=== PATIENT | male | born 1985 ===

== ENCOUNTER 2025-02-25 15:20 | Emergency (ER) | payer OTHER, SELFPAY ==
--- OUTSIDE RECORDS SUMMARY | 2025-02-25 15:23 | XMS_ITS | Patient Health Record ---
Author Organization [facility] Address [address], [place] [id number] Care Team Providers Care Licensed Pesticide Applicator Name Role Phone Gurmeet Mercado Primary Care Provider [phone] Sukhjinder De Luna Unavailable [phone] Allergies No Known Allergies Reason For Referral No Information Medications Medication SIG (Take, Route, Frequency, Duration) Notes Start Date End Date Status Fiber Active Lisinopril 20 MG 1 tablet Orally Once a day for 90 days Active Cyclobenzaprine HCl 10 MG 1 tablet Orall y three times a day as needed (prn) Active Melatonin Active Protonix 20 MG 1 tablet Orally Once a day Active amLODIPine Besylate 5 MG 1 tablet Orally Once a day Active Social History Tobacco Use: Social History Observation Description Date Details (start date - stop date) Never Smoker NA - NA Smoking Question Answer Notes Status: Non-Smoker Problems Problem Type SNOMED Code ICD Code Onset Dates Problem Status W/U Status Risk Notes Problem [id number] Hypertension, unspecified type (I10) Active confirmed Vital Signs Heart Rate 90 /min 07/18/2024 Temperature 97.2 degrees Fahrenheit 07/18/2024 Respiratory Rate 18 /min 07/18/2024 Blood pressure diastolic 88 mm Hg 07/18/2024 Height 68 in 07/18/2024 Blood pressure systolic 130 mm Hg 07/18/2024 Weight 207.8 lbs 07/18/2024 BMI 31.59 kg/m2 07/18/2024 Encounters Encounter Location Date Provider Diagnosis [facility] [address], [place] [id number] 05/09/2024 Gurmeet Mercado Hypertension, unspecified type I10 [facility] [address], [place] [id number] 07/18/2024 Sukhjinder De Luna Hypertension, unspecified type I10 [facility] [address], [place] [phone] 09/11/2024 Sukhjinder De Luna Assessments Encounter Date Diagnosis (ICD Code) Assessment Notes Treatment Notes Treatment Clinical Notes Section Notes 05/09/2024 Hypertension, unspecified type (ICD-10 - I10) 1. Recommend to get an upper arm blood pressure monitor. 2. Monitor BP at least once daily and keep the BP readings in a BP log. 3. Avoid checking BP right after eating or activities. 4. Consume a diet rich in fruits, vegetables, whole grains, and low-fat dairy products, with reduced content of saturated and total fat. 5. Regular physical activity: 30 min-walk 5 times weekly. 6. Limit alcohol intake. 7. Please activate EMS (emergency medical services) if you develop symptoms such as chest pain, shortness of breath, dizziness, headache, vomiting, sudden vision changes, change of consciousness, and/or any new symptoms. 8. Seek care in urgent care or ER if your systolic blood pressure remains high >180mmHg or diastolic blood pressure >120mmHg, and/or has symptoms after taking your prescribed medications. 9. Seek care in urgent care or ER immediately if develops low blood pressure symptoms such as dizziness, fainting, weakness, blurry vision (differ from baseline), and/or confusion. 10. Consider schedule an appointment with VANNESA De Luna to discuss alterntaive treatment for high blood pressure. 11. Patient agreed with plans of care. 07/18/2024 Hypertension, unspecified type (ICD-10 - I10) 07/18/2024 Other 1. Hypertension - Trial off amlodipine: Hold amlodipine for 1-2 days while monitoring blood pressure daily. If blood pressure increases significantly, resume amlodipine. If blood pressure remains stable, consider increasing lisinopril to 20 mg daily. - Lifestyle modifications: Continue healthy diet and resume regular exercise with a focus on short, high-intensity intervals (target heart rate 150-160 bpm) rather than prolonged elevated heart rate. - Supplements: Increase beet supplement as tolerated. Start magnesium 300 mg daily to offset lisinopril-induced magnesium loss and aid with constipation. Continue probiotic. - Monitoring: Obtain home blood pressure cuff and monitor blood pressure daily at varying times. Report any significant changes or concerns. 2. Fatigue and difficulty losing weight - Differential diagnosis: Fluid retention secondary to hypertension and medications, hypogonadism, heavy metal toxicity (cadmium, lead) - Investigations: Check testosterone levels (morning draw), consider screening for cadmium and lead exposure given occupational history - Treatment: Adjust hypertension management as above. If heavy metal toxicity identified, consider high-dose zinc supplementation with close monitoring of bowel habits. 3. Health maintenance - Screening: Consider coronary artery calcium score and peripheral artery disease screening (e.g., [facility] Screening) given age and risk factors - Follow-up: Close follow-up via portal messaging and office visits as needed. Goal to optimize blood pressure management and address any adverse effects over the next 6 months. Plan Of Treatment No Information Insurance Providers Payer Name Payer Address Payer Phone Subscriber Number Group Number Insured Name Patient Relationship to Insured Coverage Start Date Coverage End Date [facility] ([facility]) [address] [place] [address] [id number] Richy Verdugo Self - patient is the insured Medical (General) History Medical History History ICD Code High BP
--- OUTSIDE RECORDS SUMMARY | 2025-02-25 15:23 | XMS_ITS | Clinical Summary ---
Author Organization [facility] Address [address] [place] [address] Care Team Providers Care Information Clerk [employer]obile [employer] Name Role Phone Doctor, No Primary Care Provider Unavailabl e Clinic, No Primary Unavailable Unavailable Allergies No known active allergies Medications amLODIPine-ambrosio zepril (LOTREL) 10-20 mg oral capsule Take 1 capsule by mouth once daily. Active LISINOPRIL ORAL Take by mouth. Active omeprazole (PRILOSEC) 10 mg oral delayed release capsule Take 1 capsule (10 mg) by mouth once daily. Active Magic Mouthwash suspension 5 mL by Swish & Swallow route every 2 (two) hours as needed for mouth pain. Contains: Equal Amounts of: MAALOX/BENAD RYL/LIDOCAIN E VISCOUS 2%. 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 Gender Identity Not on file Sexual Orientation Not on file Last Filed Vital Signs Vital Sign Reading Time Taken Comments Blood Pressure 133/91 08/07/2022 10:31 AM RECYCLING DIRECTOR Pulse 93 08/07/2022 10:31 AM RECYCLING DIRECTOR Temperature 36.9 C (98.5 F) 08/07/2022 10:31 AM RECYCLING DIRECTOR Respiratory Rate 18 08/07/2022 10:31 AM RECYCLING DIRECTOR Oxygen Saturation 98% 08/07/2022 10:31 AM RECYCLING DIRECTOR Inhaled Oxygen Concentration - - Weight - - Height - - Body Mass Index - - Plan of Treatment Health Maintenance Due Date Last Done Comments Hepatitis C Screening 1985 Lipid Screening 1985 Anxiety Screening (ARCELIA-2) 1986 Depression Assessment (PHQ-2) 1986 Adult Tetanus Booster 2004 COVID-19 Vaccine (1 - 2024-2 5 season) 2024 Influenza Vaccine (Season Ended) 2025 RSV Vaccines (1 - 1-dose 75+ series) 2060 Meningococcal B Vaccine Aged Out No l onger eligible based on patient's age to complete this topic Pneumococcal Vaccine Aged Out No long er eligible based on patient's age to complete this topic Insurance [facility] Address: [facility] [address] [place] [address] Care Teams Information Clerk Automobile Club Relationship Specialty Start Date End Date Doctor, No No ad PCP - General Radiology 08/07/22 Clinic, No Primary PCP - Primary Care Clinic 08/07/22
--- OUTSIDE RECORDS SUMMARY | 2025-02-25 15:23 | XMS_ITS | Referral Summary ---
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 Gender Identity Not on file Sexual Orientation Not on file Last Filed Vital Signs Vital Sign Reading Time Taken Comments Blood Pressure 133/91 08/07/2022 10:31 AM ENGINEERING CLERK Pulse 93 08/07/2022 10:31 AM ENGINEERING CLERK Temperature 36.9 C (98.5 F) 08/07/2022 10:31 AM ENGINEERING CLERK Respiratory Rate 18 08/07/2022 10:31 AM ENGINEERING CLERK Oxygen Saturation 98% 08/07/2022 10:31 AM ENGINEERING CLERK Inhaled Oxygen Concentration - - Weight - - Height - - Body Mass Index - - Plan of Treatment Not on file Insurance [facility] Care Teams Pest Control Applicator Relationship Specialty Start Date End Date Doctor, No No ad PCP - General Radiology 08/07/22 Clinic, No Primary PCP - Primary Care Clinic 08/07/22
[2025-02-25 15:28] VITALS: BP 152/100; PULSE 97; RESP 16; O2SAT 98; BMI 31.3
[2025-02-25 15:36] VITALS: TEMP 36.6
--- NOTE | 2025-02-25 16:15 | ED.GENADULT ---
HPI - General Adult General Date Seen: 02/25/25 Chief complaint: Chest Pain Stated complaint: Left painful, Tightness in chest, feeling ill Time Seen by Provider: 02/25/25 16:12 History of Present Illness HPI narrative: 39-year-old male with history of GERD, hypertension, insomnia, family history of coronary artery disease and diabetes. He does not have any known history of coronary disease. He presents to the ER today for evaluation of chest pain and left arm pain and chest tightness. Symptoms began 4 days ago on Sunday have been present since then. He presents to the ER this afternoon with his fiancee who help supplement his history and his supportively as side. He notes that since either Sunday or Sunday he started having some symptoms of an achy numbness in his left elbow and sometimes in his left upper arm and sometimes in his left arm. This is reminiscent to him of in the past when he was diagnosed with tennis elbow. Also since Sunday or Sunday he has been having episodes of discomfort in his chest. This using the central chest but sometimes on the right and sometimes on the left. It feels kind of like a tight feeling. It is not really a pressure or sharp pain. It is not pleuritic it does not hurt to breathe. The pain does not radiate through to his back or up to his jaw. Although he is having left arm pain it does not really correlate with the episodes of chest discomfort. No nausea. No palpitations. No abdominal pain. No swelling in his legs. Nose recent travel or immobilization. He does have hypertension is on lisinopril. He notes that he almost always has elevated blood pressure readings at a doctor's office but blood pressure tends to run much lower when he is at home. He has been having chest discomfort since Sunday or Sunday. He was fairly bed yesterday at his child's little league game but then got a bit better. It has been present throughout the day today. He was worried that he might be having coronary artery disease or heart attack so wanted to come get checked out. He also endorses a lot of stressors in his life that any specific stressor they heal confided in me. He also has history of GERD. He never takes ibuprofen or NSAIDs. He is on omeprazole. He has a primary care provider who is a holistic doctor in [place]. Related Data Previous Rx's ?Medication ?Instructions ?Recorded cyclobenzaprine 10 mg tablet 10 mg PO TID #90 tabs 10/12/23 lisinopril 10 mg tablet 10 mg PO QDAY #90 tabs 10/12/23 pantoprazole 20 mg tablet,delayed 20 mg PO QDAY #90 tabs 12/08/24 release Allergies Allergy/AdvReac Type Severity Reaction Status Date / Time No Known Drug Allergies Allergy Verified 02/25/25 15:33 PFSH PFS Surgical History Status post vasectomy ?Z98.52 - Vasectomy status (ICD-10) Status post tonsillectomy and adenoidectomy ?Z90.89 - Acquired absence of other organs (ICD-10) Social History Smoking Status: Current some day smoker What tobacco products do you use: cigarettes Do you use any of these nicotine containing products: None Second hand tobacco smoke exposure: No How often do you have a drink containing alcohol: monthly or less How often do you have six or more drinks on one occasion: Never AUDIT-C Alcohol total score: 1 Non-prescribed substance use: denies use Exam Narrative: Exam Narrative: Constitutional: Appears well-developed and well-nourished. Alert. Conversant. Non toxic. HENT: Head: Atraumatic. Nose: Nose normal. Mouth/Throat: Oral mucosa is clear and moist. no trismus. Pharynx normal. Tonsils symmetric. No tonsillar enlargement, erythema, or exudate. Eyes: Conjunctivae normal. EOM normal. Pupils equal, round, and reactive to light. No scleral icterus. Neck: Normal range of motion. Neck supple. No tracheal deviation present. No JVD Cardiovascular: Normal rate, regular rhythm. No gallop. No friction rub. No murmur heard. Symmetric radial and PT artery pulses Pulmonary/Chest: Effort normal. No stridor. No respiratory distress. No wheezes. No rales. No rhonchi . No tenderness. Abdominal: Soft. Bowel sounds normal. No distension. No mass. No tenderness. No rebound. No guarding. Musculoskeletal: RUE: Normal range of motion. No tenderness. No deformity LUE: Normal range of motion. No tenderness of the clavicle, shoulder, humerus, biceps, triceps, elbow, medial epicondyle, forearm, wrist. Perhaps mild tenderness over the lateral epicondyle. No deformity RLE: Normal range of motion. No edema. No tenderness. No deformity LLE: Normal range of motion. No edema. No tenderness. No deformity Neurological: Alert and oriented to person, place, and time. Normal strength. CN II-VII intact. No sensory deficit. GCS eye subscore is 4. GCS verbal subscore is 5. GCS motor subscore is 6. Normal coordination Skin: Skin is warm and dry. No rash noted. No pallor. Normal capillary refill. Psychiatric: Normal mood. Normal affect. Const: Vital Signs, click to edit/add: Vital Signs - 24 hr 02/25/25 15:28 02/25/25 15:36 02/25/25 17:15 Temperature 97.9 F Pulse Rate 80 Pulse Rate [Right Pulse Oximeter] 97 Respiratory Rate 16 24 Blood Pressure 145/102 H Blood Pressure [Ri ght Upper Arm] 152/100 H Pulse Oximetry 98 96 Oxygen Delivery Me thod Room Air 02/25/25 17:32 Temperature Pulse Rate 72 Pulse Rate [Right Pulse Oximeter] Respiratory Rate 16 Blood Pressure 131/84 Blood Pressure [Ri ght Upper Arm] Pulse Oximetry 97 Oxygen Delivery Me thod Course Course ED Course: Patient had already taken aspirin 325 mg p.o. at home prior to coming in so we did not administer aspirin here. Patient had an IV in a fluid bolus and notes that with the saline infusing all of his chest discomfort resolved. Had ordered nitro but it was not given because the pain resolved without it. Vital Signs Vital signs: Initial Vital Signs Pulse Rate 97 02/25/25 15:28 Pulse Rhythm Regular 02/25/25 15:28 Pulse Strength 3+ Normal 02/25/25 15:28 Respiratory Rate 16 02/25/25 15:28 Blood Pressure 152/100 H 02/25/25 15:28 Blood Pressure Mean 117 H 02/25/25 15:28 Blood Pressure Position Sitting 02/25/25 15:28 Pulse Oximetry 98 02/25/25 15:28 Oxygen Delivery Method Room Air 02/25/25 15:28 Vital Signs Pulse Rate 97 02/25/25 15:28 Respiratory Rate 16 02/25/25 15:28 Blood Pressure 152/100 H 02/25/25 15:28 Pulse Oximetry 98 02/25/25 15:28 Oxygen Delivery Method Room Air 02/25/25 15:28 Temperature 97.9 F 02/25/25 15:36 Pulse Rate 72 02/25/25 17:32 Respiratory Rate 16 02/25/25 17:32 Blood Pressure 131/84 02/25/25 17:32 Pulse Oximetry 97 02/25/25 17:32 Oxygen Delivery Method Room Air 02/25/25 15:28 Medications Administered Medications: Discontinued Medications Generic Name Dose Route Start Last Admin Trade Name Freq PRN Reason Stop Dose Admin Sodium Chloride 1,000 mls @ 1,000 mls/hr 02/25/25 16:45 02/25/25 17:45 0.9 % Sodium Chloride 1000 Ml IV 02/25/25 17:44 Infused .Q1H TONY Infusion Medical Decision Making MDM Narrative Medical decision making narrative: This patient presents to the ER today for evaluation of chest pain[]. Differential was broad. No evidence of palpitations, syncope or other cardiac dysrhythmia. We considered possible ACS, however workup with EKG and troponin is negative. HEART score is 1. Given time since onset of symptoms (symptoms throughout the day today and intermittently since Sunday), I do not think the patient needs to be admitted for further sets of enzymes. EKG shows no evidence for pericarditis. Clinical presentation not suggestive of myocarditis. Chest x-ray shows no evidence for pneumonia, pneumothorax, pulmonary edema, pleural effusion, rib fracture, cardiomegaly. Mediastinum is normal on the x-ray. The patient has no ripping or tearing pain through to the back and has symmetric pulses on exam, no other acute neuro findings so I doubt aortic dissection. Risk of radiation and contrast exposure would outweigh the benefit of CT angiogram. We considered PE for this patient. Screening D-dimer is normal. No wheezing or bronchospasm to suggest COPD/asthma. No signs of chest wall cellulitis, shingles, injury. It is possible that his symptoms could be related to GERD. Also possible it could be related to anxiety. With reasonable clinical confidence, I think the patient is safe for outpatient follow up. Discussed return precautions. Questions answered. Patient voices comfort with the plan. He would like to get established with a new primary care provider. Provided with the phone number for the [facility] security assurance analyst. Also recommended that he call his insurance company to find out which clinics are ?in network for him. Lab Data Labs: Lab Results 02/25/25 02/25/25 Range/Units 16:55 17:00 WBC 8.37 (4.50-11.00) K/uL RBC 4.92 (4.30-5.90) m/uL Hgb 15.3 (13.5-17.5) gm/dL Hct 42.6 (37.0-53.0) % MCV 87 (80-100) fL MCH 31 (26-34) pg MCHC 36 (32-36) gm/dL RDW Coeff of Georges 12.0 (11.5-15.5) % Plt Count 349 (140-440) K/uL Neut % (Auto) 59.5 (42.0-72.0) % Lymph % (Auto) 29.2 (20-44) % [place] % (Auto) 9.2 (0.0-11.0) % Eos % (Auto) 1.6 (0.0-7.0) % Baso % (Auto) 0.4 (0.0-3.0) % Neut # (Auto) 4.99 (1.7-7.0) K/uL Lymph # (Auto) 2.44 (0.90-2.90) K/uL [place] # (Auto) 0.80 (0.00-0.90) K/UL Eos # (Auto) 0.13 (0.00-0.50) K/uL Baso # (Auto) 0.03 (0.00-0.30) K/uL Abs Immat Gran (auto) 0.01 (0.00-0.30) K/uL Imm/Tot Granulo (auto) 0.1 % D-Dimer Quant (PE/DVT) 0.24 (0.00-0.50) ug/ml Sodium 138 (135-149) mmol/L Potassium 4.2 (3.6-5.1) mmol/L Chloride 103 (96-114) mmol/L Carbon Dioxide 26 (20-32) mmol/L Anion Gap 9 (7-15) mEq/L BUN 24 (5-24) mg/dL Creatinine 1.0 (0.5-1.5) mg/dL Estimated Creat Clear 92.72 Estimated GFR 98 ml/min Glucose 101 (60-115) mg/dL Calcium 9.4 (8.4-10.6) mg/dL POC Troponin I 0.00 L (0.01-0.04) ng/ml Imaging Data Chest x-ray: Attestation: I have reviewed the pertinent imaging results. My impression: Clear lungs. No pulmonary edema. No pneumothorax. No visible rib fracture. Normal cardiac silhouette Radiologist's impression: IMPRESSION: No acute findings. Discharge Plan Discharge Clinical Impression: Chest pain Patient Disposition: Home, Self-Care Condition: Stable Instructions: Chest Pain (DC) Additional Instructions: As we discussed, so far your workup looks good. However, not every medical condition can always be detected in a single ER visit. Monitor your symptoms carefully. If you have more episodes of chest discomfort or squeezing in your chest or any other new worsening symptoms such as palpitations, fainting spells, trouble breathing, cough or fever, or any other concerns please return to the ER right away. Please follow-up with your regular primary care provider, or, if you would like you can call the [facility] to establish care with a new primary. You can call [phone]. Prescriptions: No Action cyclobenzaprine 10 mg tablet 10 mg PO TID Qty: 90 1RF lisinopril 10 mg tablet 10 mg PO QDAY Qty: 90 3RF pantoprazole 20 mg tablet,delayed release (DR/EC) 20 mg PO QDAY Qty: 90 0RF Follow Up/Referrals: David Laird MD [Staff Physician, Family Practice] Stand Alone Forms: [employer] Info Instructions
--- NOTE | 2025-02-25 16:42 | CRLHL7_ITS ---
For Patients: As a result of the Century Cures Act, medical imaging exams and procedure reports are released immediately into your electronic medical record. You may view this report before your referring provider. If you have questions, please contact your health care provider. INDICATION: Chest pain/chest tightness, left arm pain. TECHNIQUE: Chest 2 views. COMPARISON: None. FINDINGS: Unremarkable cardiomediastinal contours. No lung consolidation. No sign of pleural effusion. No pneumothorax. No acute osseous or soft tissue findings. IMPRESSION: No acute findings. Dictated by Jorge Gonzales MD @ 02/25/2025 5:28:50 PM (Electronically Signed)
[2025-02-25 17:04] LABS: Basophils Absolute Auto 0.03 K/uL (0.00-0.30); Basophils Percent Auto 0.4 % (0.0-3.0); Eosinophils Absolute Auto 0.13 K/uL (0.00-0.50); Eosinophils Percent Auto 1.6 % (0.0-7.0); Hematocrit 42.6 % (37.0-53.0); Hemoglobin* 15.3 gm/dL (13.5-17.5); Immature Granulocytes Abs Auto 0.01 K/uL (0.00-0.30); Immature Granulocytes Pct Auto 0.1 %; Lymphocytes Absolute Auto 2.44 K/uL (0.90-2.90); Lymphocytes Percent Auto 29.2 % (20-44); Mean Corpuscular HGB Conc 36 gm/dL (32-36); Mean Corpuscular Hemoglobin 31 pg (26-34); Mean Corpuscular Volume 87 fL (80-100); Monocytes Percent Auto 9.2 % (0.0-11.0); Neutrophils Absolute Auto 4.99 K/uL (1.7-7.0); Neutrophils Percent Auto 59.5 % (42.0-72.0); Platelet Count* 349 K/uL (140-440); Red Blood Count 4.92 m/uL (4.30-5.90); White Blood Count* 8.37 K/uL (4.50-11.00)
[2025-02-25] MEDS: 0.9 % SODIUM CHLORIDE 1000 ml 1,000 ML IV (17:08)
[2025-02-25 17:14] LABS: Slide Review Reflex No
[2025-02-25 17:15] VITALS: BP 145/102; PULSE 80; RESP 24; O2SAT 96
[2025-02-25 17:18] LABS: Chloride* 103 mmol/L (96-114); Potassium* 4.2 mmol/L (3.6-5.1); Sodium* 138 mmol/L (135-149)
[2025-02-25 17:21] LABS: Anion Gap 9 mEq/L (7-15); Blood Urea Nitrogen* 24 mg/dL (5-24); Carbon Dioxide* 26 mmol/L (20-32); Est. Creatinine Clearance* 92.72; Estimated Glomerular Filt Rate 98 ml/min
[2025-02-25 17:22] LABS: Calcium* 9.4 mg/dL (8.4-10.6); Glucose* 101 mg/dL (60-115)
[2025-02-25 17:32] VITALS: BP 131/84; PULSE 72; RESP 16; O2SAT 97
[2025-02-25 17:43] LABS: D Dimer Quantitative* 0.24 ug/ml (0.00-0.50)
[2025-02-25 18:00] VITALS: PULSE 80; RESP 22; O2SAT 97
== END 2025-02-25 18:10 | disposition home or self-care (01) ==
PROVIDERS: Emergency Provider Emergency Medicine
DX: R07.9 Chest pain, unspecified (principal); M79.602 Pain in left arm; R20.0 Anesthesia of skin; I10 Essential (primary) hypertension; K21.9 Gastro-esophageal reflux disease without esophagitis; F43.9 Reaction to severe stress, unspecified; Z79.899 Other long term (current) drug therapy
CPT/HCPCS: 36415; 71046; 80048; 84484; 85025; 85379; 93005; 99283; 99284; 99285; J7030